=== PATIENT | male | born 1995 ===

== ENCOUNTER 2017-10-18 10:49 | Emergency (ER) | payer SELFPAY ==
[~2017-10-18] VITALS: Ht 185.4 cm; Wt 113.4 kg
[2017-10-18] MEDS ORDERED: PROMETHAZINE-C118 M1 ORAL (11:49)
[2017-10-18] MEDS ORDERED: TAMIFLU75 MG ORAL (11:49)
[2017-10-18] MEDS ORDERED: IBUPROFEN600 MG ORAL (11:49)
[2017-10-18 11:52] VITALS: BP 121/71
--- NOTE | 2017-10-20 21:04 | Emergency Room Report ---
History of Present Illness General Chief Complaint: Flu Like Symptoms Source: Patient Present Illness HPI 22-year-old male presents ED for evaluation. Notes body aches and chills and cough for the last 3 days. Pain is dull, 9 out of 10, nonradiating. Cough is productive of yellowish phlegm. Denies earache or sore throat. Afebrile in triage. Denies sick contacts or recent travel. No other aggravating or relieving factors. Denies other associated symptoms Allergies: Coded Allergies: No Known Allergies (Unverified , 10/18/17) Patient History Past Medical History: none Past Surgical History: none Pertinent Family History: none Social History: Denies: smoking, alcohol use, drug use Immunizations: UTD Reviewed Nursing Documentation: PMH: Agreed, PSxH: Agreed Nursing Documentation-PMH Past Medical History: No Stated History Review of Systems All Other Systems: negative except mentioned in HPI Physical Exam Vital Signs Date Time Temp Pulse Resp B/P (MAP) Pulse Ox O2 Delivery O2 Flow Rate FiO2 10/18/17 11:00 98.4 108 24 121/71 99 Room Air 98.4 Sp02 EP Interpretation: reviewed, normal General Appearance: no apparent distress, alert, GCS 15, non-toxic Head: normocephalic, atraumatic Eyes: bilateral eye normal inspection, bilateral eye PERRL ENT: hearing grossly normal, normal pharynx, no angioedema, normal voice Neck: full range of motion, supple/symm/no masses Respiratory: chest non-tender, lungs clear, normal breath sounds, speaking full sentences Cardiovascular #1: regular rate, rhythm, no edema Cardiovascular #2: 2+ carotid (R), 2+ carotid (L), 2+ radial (R), 2+ radial (L) , 2+ dorsalis pedis (R), 2+ dorsalis pedis (L) Gastrointestinal: normal bowel sounds, non tender, soft, non-distended, no guarding, no rebound Rectal: deferred Genitourinary: normal inspection, no CVA tenderness Musculoskeletal: back normal, gait/station normal, normal range of motion, non- tender Neurologic: alert, oriented x3, responsive, motor strength/tone normal, sensory intact, speech normal Psychiatric: judgement/insight normal, memory normal, mood/affect normal, no suicidal/homicidal ideation Reflexes: 3+ bicep (R), 3+ bicep (L), 3+ tricep (R), 3+ tricep (L), 3+ knee (R) , 3+ knee (L) Skin: normal color, no rash, warm/dry, well hydrated Lymphatic: no adenopathy Medical Decision Making Diagnostic Impression: Primary Impression: Influenza-like symptoms ER Course Hospital Course 22-year-old M presents to ED complaining of chills + bodyaches + cough Differential diagnoses include: URI, pharyngitis, otitis media, influenza Clinical course Patient placed on stretcher. After initial history physical exam reveals a male in no acute distress. Bilateral TM unremarkable, no pharyngeal erythema. Lungs clear. No CVA tenderness. Clinical findings consistent with influenza. Given that I will prescribe Tamiflu Diagnosis - influenza-like symptoms Stable and discharged home with prescriptions for tamiflu. drink plenty of fluids. Instructed to followup with PMD. Return to ED if symptoms recur or worsen Last Vital Signs Date Time Temp Pulse Resp B/P (MAP) Pulse Ox O2 Delivery O2 Flow Rate FiO2 10/18/17 11:52 98.4 24 121/71 99 Room Air 98.4 10/18/17 11:10 108 Status: improved Disposition: HOME, SELF-CARE Condition: Stable Scripts Codeine/Promethazine Hcl* (PROMETHAZINE-CODEINE SYRUP*) 118 Ml Syrup 5 ML ORAL Q6H Y for For Cough, #118 ML 0 Refills Prov: BISHNU HOPE M.D. 10/18/17 Oseltamivir Phosphate (Tamiflu) 75 Mg Capsule 75 MG ORAL TWICE A DAY for 5 Days, CAP Prov: BISHNU HOPE M.D. 10/18/17 Ibuprofen* (MOTRIN*) 600 Mg Tablet 600 MG ORAL Q8H Y for For Pain, #30 TAB 0 Refills Prov: BISHNU HOPE M.D. 10/18/17 Referrals: NOT CHOSEN IPA/,REFERRING (PCP) Patient Instructions: Influenza, Adult, [id number] BISHNU HOPE M.D. Oct 20, 2017 21:04
== END 2017-10-18 11:52 | disposition home or self-care (01) ==
LOC: EMR 11:38
DX: J11.1 Influenza due to unidentified influenza virus with other respiratory manifestations (principal)
CPT/HCPCS: 99284